=== PATIENT | female | born 1975 | race Caucasian/White ===

== ENCOUNTER → 2021-04-07 14:49 | Outpatient (BNVA) | payer OTHER, SELFPAY | PROVIDERS: PCP Nurse Practitioner Family; Referring Provider Nurse Practitioner Family; Visit Provider Nurse Practitioner | DX: R55 Syncope and collapse (principal); G60.9 Hereditary and idiopathic neuropathy, unspecified; F17.210 Nicotine dependence, cigarettes, uncomplicated | CPT/HCPCS: 99204 ==

== ENCOUNTER 2021-05-02 12:52 | Outpatient (CLI) | payer OTHER, SELFPAY ==
[2021-05-02] MEDS: iohexol 350 mg/mL 100 mL Btl IV (13:28)
--- NOTE | 2021-05-02 13:30 | CT_ITS ---
WS: [id number] CTA scan of the head and neck. Additional two-dimensional coronal and sagittal reconstruction along w ith MIP images was performed. 05/02/2021 Clinical Data: R55 - Syncope and collapse Comparison: None. DLP: 2010.[address] scans at [facility] use at least one of these dose optimization techniques: automated e xposure control; mA and/or kV adjustment per patient size (includes targeted exams where dose is matc hed to clinical indication); or iterative reconstruction. Findings: The carotid arteries bifurcate normally into the internal carotid arteries. The vertebral arteries ar e normal. There is no lymphadenopathy within the neck. The intracerebral circulation shows that the i nternal carotid arteries bifurcate into the anterior and middle cerebral arteries. [place] i s intact. The basilar arterial system is normal. No aneurysms are seen. The ventricular system is nor mal without shift. The posterior fossa is unremarkable. There is no prevertebral soft tissue swelling. The bones of the cervical spine and skull demonstrate no erosions. The intraorbital contents, internal auditory canals and sella turcica are normal. There is mucoperiosteal thickening of the maxillary and sphenoid sinuses. The parotid glands are normal. Th e parapharyngeal areas are unremarkable. The larynx is symmetrical. The thyroid gland shows normal en hancement. The lung apices are unremarkable. CT/CT angio headneck* [id number] Impression: 1. Normal carotid and vertebral circulation of the neck. 2. Normal intracerebral circulation. 3. Mucoperiosteal thickening of the sphenoid and maxillary sinuses.
== END 2021-05-02 12:53 | disposition home or self-care (01) ==
PROVIDERS: PCP Nurse Practitioner Family; Visit Provider Nurse Practitioner
DX: R55 Syncope and collapse (principal)
CPT/HCPCS: 70496; 70498; Q9967

== ENCOUNTER → 2021-05-09 10:01 | Outpatient (BNVA) | payer OTHER, SELFPAY | PROVIDERS: PCP Nurse Practitioner Family; Visit Provider Nurse Practitioner | DX: R20.8 Other disturbances of skin sensation (principal); F17.200 Nicotine dependence, unspecified, uncomplicated | CPT/HCPCS: 99213 ==

== ENCOUNTER 2021-05-09 10:51 | Outpatient (CLI) | payer OTHER, SELFPAY ==
[2021-05-09 12:16] LABS: C Reactive Protein 5.9 mg/L (0.0-4.9); Thyroid Stimulating Hormone 1.06 uIU/mL (0.27-4.20); Vitamin B12 321 pg/mL (232-1245)
[2021-05-09 12:28] LABS: Folate Level 10.7 ng/mL (4.8-37.3)
[2021-05-12 10:57] LABS: Erythrocyte Sedimentation Rate 6 mm/hr (0-15)
[2021-05-14 18:33] LABS: Methylmalonic Acid 95 nmol/L (87-318)
== END 2021-05-09 10:52 | disposition home or self-care (01) ==
LOC: LAB 10:55
PROVIDERS: PCP Internal Medicine; Visit Provider Nurse Practitioner
DX: G62.9 Polyneuropathy, unspecified (principal); R55 Syncope and collapse
CPT/HCPCS: 82607; 82746; 83921; 84260; 84443; 85651; 86140; 86431

== ENCOUNTER → 2021-06-03 08:19 | Outpatient (BNVA) | payer OTHER, SELFPAY | PROVIDERS: PCP Internal Medicine; Referring Provider Nurse Practitioner; Visit Provider Specialist | DX: R55 Syncope and collapse (principal); R20.9 Unspecified disturbances of skin sensation | CPT/HCPCS: 95816 ==

== ENCOUNTER 2021-12-09 06:49 | Outpatient (CLI) | payer OTHER, SELFPAY ==
--- NOTE | 2021-12-09 07:15 | MR_ITS ---
WS: [id number] MRI HEAD WITH CONTRAST TECHNIQUE: Sagittal T1, T2 axial, T2 axial FLAIR, axial susceptibility weighted imaging, axial diffus ion weighted images, and coronal T2 images were obtained. Pre and post-T1 axial and post T1 coronal i mages. ADC and FSPGR images. CLINICAL INFORMATION: R51.9 - Headache, unspecified COMPARISON: CTA May 02, 2021 and MRI March 03, 2021 FINDINGS: No evidence of restricted diffusion to suggest acute ischemia. Ventricular system and basal cisterns are patent. Normal bourgeois-white differentiation. No suspicious intracranial signal abnormalities. Normal posterior fossa. Normal vascular flow voids at the skull base. No extra-axial fluid collection s. No evidence of mass or mass effect. Mild mucosal thickening in the paranasal sinuses. Mastoid air cells well aerated. Normal posterior nasopharynx. Normal optic chiasm and pituitary infundibulum. Temporal lobes and hippocampal formations are normal in appearance. No hemosiderin on susceptibly weighted images. No abnormal intracranial enhancement. N ormal cavernous sinuses and Meckel's cave. Normal dural venous sinuses. MR/MR head wo/w con [id number] IMPRESSION: 1. No evidence of restricted diffusion to suggest acute ischemia. 2. No suspicious intracranial signal abnormalities. Normal bourgeois-white differen tiation. 3. Mild mucosal thickening in the paranasal sinuses. 4. No hemosiderin on the susceptibly weighted images. 5. No abnormal gadolinium enhancement.
[2021-12-09] MEDS: gadobenate dimeglumine 20 mL vial IV (07:58)
== END 2021-12-09 06:50 | disposition home or self-care (01) ==
LOC: RAD 06:52
PROVIDERS: PCP Internal Medicine; Visit Provider Nurse Practitioner
DX: R51.9 Headache, unspecified (principal); M54.13 Radiculopathy, cervicothoracic region
CPT/HCPCS: 70553

== ENCOUNTER 2021-12-11 08:13 | Outpatient (CLI) | payer OTHER, SELFPAY ==
--- NOTE | 2021-12-11 08:45 | MR_ITS ---
WS: [id number] MRI CERVICAL SPINE NONCONTRAST TECHNIQUE: Sagittal T1, T2 and STIR imaging. Axial T2, gradient, and fiesta imaging. CLINICAL INFORMATION: R51.9 - Headache, unspecified COMPARISON: None. FINDINGS: Straightening of the normal cervical lordosis. Mild disc bulging worse at C5-C6 and C6-C7. Slight con tact of the cervical cord at C5-C6. Cord signal is normal. No high-grade central canal stenosis. C2-C3: Normal. C3-C4: No significant disc bulging. Mild osteophytic ridging. Spinal canal and foramen are patent. C4-C5: No significant disc bulging. Mild facet arthropathy. Spinal canal and foramen are patent. C5-C6: Shallow central disc protrusion with slight contact of the cervical cord with slight indentati on. Mild central canal stenosis. Mild LEFT and no significant RIGHT bony foraminal narrowing. Mild fa cet arthropathy. C6-C7: Minimal disc bulging and osteophytic ridging. Tiny shallow RIGHT pericentral protrusion. Spina l canal is patent. Mild LEFT and no significant RIGHT foraminal narrowing. Mild facet arthropathy. C7-T1: Mild LEFT and no significant RIGHT bony foraminal narrowing. Spinal canal is patent. MR/MR cervical spin wo con* [id number] IMPRESSION: 1. Straightening of the normal cervical lordosis. Cord signal is normal. 2. Small central protrusion C5-C6 with slight contact of the cervical cord and mild central canal stenosis. Cord signal is normal. 3. Tiny RIGHT pericentral protrusion C6-C7. Spinal canal is patent. 4. Mild bony foraminal narrowing LEFT C5-C6, LEFT C6-C7, and LEFT C7-T1. 5. Mild facet arthropathy described above.
== END 2021-12-11 08:14 | disposition home or self-care (01) ==
PROVIDERS: PCP Internal Medicine; Visit Provider Nurse Practitioner
DX: M54.12 Radiculopathy, cervical region (principal); R51.9 Headache, unspecified; M50.222 Other cervical disc displacement at C5-C6 level; M50.223 Other cervical disc displacement at C6-C7 level
CPT/HCPCS: 72141